=== PATIENT | male | born 1995 | race Two or more races ===

== ENCOUNTER 2019-06-16 21:18 | Emergency (ER) | payer MEDICAID, OTHER ==
[~2019-06-16] VITALS: Ht 180.3 cm; Wt 99.8 kg
[2019-06-16] MEDS ORDERED: HYDROcodone-ACET 10/325MG TAB PO ONE (22:30)
[2019-06-16] MEDS ORDERED: BACLOFEN 10 MG TAB PO ONE (22:30)
[2019-06-16 23:20] VITALS: BP 105/70
== END 2019-06-16 23:25 | disposition home or self-care (01) ==
LOC: ER 21:18
DX: S62.390A Other fracture of second metacarpal bone, right hand, initial encounter for closed fracture (principal); W22.01XA Walked into wall, initial encounter; Y93.89 Activity, other specified; Y92.89 Other specified places as the place of occurrence of the external cause; Y99.8 Other external cause status
CPT/HCPCS: 29125; 73090; 73130